=== PATIENT | male | born 1980 | race Caucasian/White ===

== ENCOUNTER 2019-07-21 11:31 | Emergency (ER) | payer OTHER ==
[2019-07-21 11:59] VITALS: BP 145/90; PULSE 95; TEMP 98.1; BMI 26.7
--- NOTE | 2019-07-21 12:52 | PDOC ---
Attending Attestation - Resident Resident Name: Keyonna Bryan - ED Attending Attestation I have performed the following: I have examined & evaluated the patient, The case was reviewed & discussed with the resident, I agree w/resident's findings & plan, Exceptions are as noted - HPI HPI: 07/21/19 12:45 39y M hx of anxiety presents with complaint of facial injury. The patient was working on a 3yy game platformfolding when he steppd on a broken board and fell off. He notes he was able to reach out and grab a slopped bar, but slid down the bar, felloff and struck his face on the ground. he remembers hitting his head on the ground, denies any other injury or pain and is not sure if anything else hit the ground first. He endorses facial pain but denies any headache, diziness, vision chabnges, numbness/tingling/weakness, neck pain, back pain arm pain, hand pain, hip pain, knee pain. pt had gone to urgent care but was referred to the ED for evaluation. exam: GENERAL: The patient is awake, alert, and fully oriented, Nontoxic - in no acute distress. HEAD: Normocephalic, atraumatic. EYES: extraocular movements intact, sclera anicteric, conjunctiva clear. ENT: Normal voice, Moist mucous membranes. Skin avulsion over the bridge of nose, edema and tenderness palpation to the proximal nose/bridge, no signs of septal hematoma. No tenderness along the mastoids, mandible, maxilla. No signs of malocclusion or loose teeth. Negative glover sign. Superficial laceration lateral to the left nare NECK: Normal range of motion, supple LUNGS: Breath sounds equal, clear to auscultation bilaterally. No wheezes, no rhonchi, no rales. HEART: Regular rate and rhythm, normal S1 and S2 without murmur, rub or gallop. ABDOMEN: Soft, nontender, No guarding, no rebound. No CVA tenderness EXTREMITIES: Normal range of motion, no edema. NEUROLOGICAL: No facial assymetry, Normal speech, PSYCH: Normal mood, normal affect. SKIN: Warm, Dry, normal turgor, Back: No midline tenderness to the cervical, thoracic or lumbar spine Musculoskelatal: FROM of b/l shoulders, elbows, wrist. FROM of hips, knees, ankles - No signs of ecchymosis, erythema, or crepitus noted on palpation extremities, chest wall, clavicals, ribs, back. Will obtain CT of the head and C-spine and facial bones. Patient's tetanus is updated from 201507/21/19 15:01 Will apply bacitracin to the skin avulsion over the bridge of the nose, the patient's facial laceration was repaired with Dermabond. Awaiting CT results - Physicial Exam PE: 07/22/19 10:01 see above - Medical Decision Making 07/21/19 15:57 ct noted for nasal fractures no signs of orbital fx no signs of will treat with prophylaxic abx, ENT and nose blowing precautions returnp recautions were dsicussed
--- NOTE | 2019-07-21 13:04 | PDOC ---
History of Present Illness - General Chief Complaint: Nasal Bleeding Stated Complaint: NOSE BLEED Time Seen by Provider: 07/21/19 12:09 History Source: Patient Exam Limitations: No Limitations - History of Present Illness Initial Comments: 39 year old male with PMH bunions, anxiety presented to ED for epistaxis and facial pain s/p fall from 6 foot scaffolding today. Pt reported he mis-stepped, causing himself to fall off a 6 foot scaffolding, he tried to grab the rail, but ultimately fell to the ground. He denied LOC, but reported he is unsure exactly of how he landed. He denied vomiting, chest pain, abdominal pain, shortness of breath, nausea, weakness, numbness, tingling, back pain, upper or lower extremity pain, lightheadedness, visual changes, pain with EOM. Allergies: PCN, all antibiotics except doxycycline + erythromycin ROS General: denied fever, chills, generalized weakness. HEENT: admitted to nasal pain, epistaxis, facial pain. denied sore throat, rhinorrhea, ear pain. Cardiovascular: denied chest pain, palpitations, syncope, diaphoresis. Respiratory: denied shortness of breath, cough, sputum production, hemoptysis. Gastrointestinal: denied abdominal pain, nausea, vomiting, diarrhea, constipation, blood in stool. Genitourinary: denied dysuria, increased urinary frequency, hematuria, urinary incontinence, flank pain. Back: denied back pain. Musculoskeletal: denied joint pain, muscle pain, joint swelling. Neurological: denied headache, dizziness, numbness, tingling, weakness. Integumentary: denied rash, laceration, abrasion. Hematologic/Lymphatic: denied bruising or bleeding. PE Constitutional: Well-nourished, Well-developed, appearing stated age. Airway: intact Breathing: bilateral breath sounds Circulation: 2+ carotid pulse B/L HEENT: head is normocephalic. no scalp hematomas. ecchymoses infraorbital right side. No facial bones tenderness to palpation. No glover sign. EOMI. PERRLA. no septal hematoma bilaterally. no active bleeding, soaked gauze removed from bilateral nares. swelling over bridge of nose with tenderness to palpation. Neck: supple. Full ROM. no midline c-spine tenderness to palpation. No step offs. Cardiovascular: regular heart rhythm. no murmurs. no pericardial friction rub. Chest wall: No tenderness to palpation of anterior chest wall. No deformity to anterior chest wall. no bruising to chest. Respiratory: clear to auscultation bilaterally. no crackles, rhonchi or wheezing. no stridor. no bruising to back. Gastrointestinal: soft, nontender. normal bowel sounds. no rebound, guarding, masses. No ecchymoses. no bruising to abdomen. Back: no midline T-spine or L-spine tenderness to palpation. No step offs. Pelvis: lower extremities equal in length without external rotation. No hip tenderness to palpation. Extremities: peripheral pulses intact. no lower extremity edema. Neurological: CN 2-12 grossly intact. moves all four extremities. Psych: awake, alert, oriented x3. follows commands. answers questions appropriately. Skin: 3 mm laceration to the left nare, no active bleeding, not full thickness. Past History - Past Medical History Allergies/Adverse Reactions: Allergies Allergy/AdvReac Type Severity Reaction Status Date / Time Penicillins Allergy Verified 07/21/19 11:51 Home Medications: Ambulatory Orders Doxycycline Hyclate 100 mg PO BID #14 tablet. 07/21/19 - Immunization History Immunization Up to Date: Yes - Psycho Social/Smoking Cessation Hx Smoking History: Current every day smoker Number of Cigarettes Smoked Daily: 40 Information on smoking cessation initiated: No Hx Alcohol Use: No Drug/Substance Use Hx: No *Physical Exam - Vital Signs Last Vital Signs Temp Pulse Resp BP Pulse Ox 98.1 F 95 H 16 145/90 98 07/21/19 11:51 07/21/19 11:51 07/21/19 11:51 07/21/19 11:51 07/21/19 11:51 Procedures - Laceration/Wound Repair Left Lateral Nose Wound Length: to 2.5 cm Wound Explored: clean, no foreign body present Wound's Depth, Shape: superficial Irrigated w/ Saline: Yes Betadine Prep: No Amount of Anesthetic (ccs): 0 Wound Repaired With: Dermabond ED Treatment Course - RADIOLOGY Radiology Studies Ordered: Category Date Time Status CERVICAL SPINE CT W/O CONTR [CT] Stat CT Scan 07/21/19 12:[address] W/O CONTRAST [CT] Stat CT Scan 07/21/19 12:[address] WITHOUT CONTRAST [CT] Stat CT Scan 07/21/19 12:37 Ordered Medical Decision Making - Medical Decision Making 39 year old male with above PMH presented to ED for facial pain s/p falling down a 6 foot scaffolding today. Initial Vital Signs Temp Pulse Resp BP Pulse Ox 98.1 F 95 H 16 145/90 98 07/21/19 11:51 07/21/19 11:51 07/21/19 11:51 07/21/19 11:51 07/21/19 11:51 Afebrile. No tachycardia. No tachypnea. Hypertensive. No hypoxia on room air. Labs ordered: none Imaging ordered: CT head, CT facial bones, CT cervical spine Medications ordered: none -Pt refused pain medication 07/21/19 15:39 CT head report: Name: [facility] Phys: Keyonna Bryan RESIDENT : 1980 Age: 39 Sex: M [facility] Acct: [id number] Loc: [address] Exam Date: 07/21/19 [place] [address] Unit Number: [id number] EXAM#: TYPE/EXAM: RESULT: CT/HEAD CT WITHOUT CONTRAST HISTORY PROVIDED : Fall TECHNIQUE: Sequential axial images were obtained from the base of the skull to the vertex. There is no evidence of acute intracranial hemorrhage, mass lesions or infarctions. There is no evidence of fracture or acute bony abnormalities. IMPRESSION: No evidence of acute intracranial pathology. Reported By: Jaime Mays MD 07/21/[address] facial bones report: Name: [facility] Phys: Keyonna Bryan RESIDENT : 1980 Age: 39 Sex: M [facility] Acct: [id number] Loc: [address] Exam Date: 07/21/19 [place] [id number] Unit Number: [id number] EXAM#: TYPE/EXAM: RESULT: CT/FACIAL BONES CT W/O CONTRAST History provided: Fall. Sequential axial images were obtained through the facial bones. Coronal and sagittal reconstructed images were also performed. There are slightly displaced fractures through the nasal bones bilaterally. No additional fractures or acute bony abnormalities are identified. There is partial opacification of the right maxillary sinus that could be related to blood. Mild mucosal thickening is seen within the left maxillary sinus. IMPRESSION: Nasal bone fractures as described above. Reported By: Jaime Mays MD 07/21/19 1535 07/21/19 15:44 CT cervical spine report: Name: [facility] Phys: Keyonna Bryan RESIDENT : 1980 Age: 39 Sex: M [facility] Acct : [id number] Loc: [facility] Exam Date: 07/21/19 Status: [place] [address] Unit Number: [id number] EXAM#: TYPE/EXAM: RESULT: [id number] CT/CERVICAL SPINE CT W/O CONTR History provided: Fall. Sequential axial images were obtained through the cervical spine from the base of the skull to the thoracic inlet. Coronal and sagittal reconstructed images were also performed. There is no evidence of fracture, subluxation or acute bony abnormalities. Mild degenerative arthritic changes are noted throughout the spine. There is mild straightening of the normal lordotic curve of the spine suggesting muscular spasm. The spinal canal is patent with no evidence of cord upper breast. IMPRESSION: No evidence of cervical spine fracture or acute pathology. Reported By: Jaime Mays MD 1541 Medications ordered: Doxycycline 100 mg PO once Pt reported resolution of epistaxis. Pt reported pain tolerable without any oral pain medication. Pt discharged. Prescribed Doxycycline 100 mg PO BID x7 days. Pt has allergies to all antibiotics except erythromycin and doxycycline. Pt advised to F/U with PCP promptly. Pt given referral for plastics for nasal fracture repair. Pt advised to take ibuprofen/tylenol for pain. Discharge - Discharge Information Problems reviewed: Yes Clinical Impression/Diagnosis: Epistaxis, Fall from height of greater than 3 feet, Work related injury, Broken nose Condition: Stable Disposition: HOME - Admission No - Additional Discharge Information Prescriptions: Doxycycline Hyclate 100 mg PO BID #14 tablet.dr - Follow up/Referral Referrals: Benjamín De Paz MD [Staff Physician] - Austin David MD [Staff Physician] - Tres Thao [Primary Care Provider] - Andres Villanueva MD [Staff Physician] - - Patient Discharge Instructions Patient Printed Discharge Instructions: DI for Nose Fracture, DI for Laceration Repair With Dermabond, DI for Nosebleed Additional Instructions: Follow up with your primary care doctor within 3 days regarding your Emergency Room visit. Your care is not complete until you follow up. Bring all paperwork given to you today to your appointment. Take Motrin over the counter for pain. Take as advised on label. You can also ADD Tylenol over the counter for pain if needed. Take as advised on label. Tylenol and Motrin are not the same medication and can be used safely together. Hold pressure over the bridge of your nose if it begins to bleed again. Do no insert anything into your nose. Do not scratch the inside of your nose. Do not blow your nose. Return to the Emergency Department for chest pain, shortness of breath, vomiting , increasing pain, abdominal pain, lightheadedness, passing out, numbness, tingling or any other new, worsening or concerning symptoms. Follow up with and ENT doctor within 3 days regarding your Emergency Room visit. Your care is not complete until you follow up. Bring all paperwork given to you today to your appointment. Do not blow your nose, or insert anything inside or play any sports until evaluated by ENT. I have provided you with a referral for a plastic surgeon should you need to see one for repair of your nasal fracture. I have sent a prescription to your Pharmacy for Doxycycline. Pick it up today and take as indicated on label. You had the first dose in the Emergency Department. - Post Discharge Activity Work/Back to School Note: Back to Work
[2019-07-21] MEDS ORDERED: DOXYCYCLINE HYCLATE 100 MG CAPSULE PO ONE (16:10)
== END 2019-07-21 16:18 | disposition home or self-care (01) ==
LOC: JER 11:31 → JERFT 11:31 → JER 16:18
PROC: 0HQ1XZZ Repair Face Skin, External Approach (ICD-10-PCS; principal; 2019-07-21)
DX: S02.2XXA Fracture of nasal bones, initial encounter for closed fracture (principal); S01.81XA Laceration without foreign body of other part of head, initial encounter; R04.0 Epistaxis; W12.XXXA Fall on and from scaffolding, initial encounter; Y93.89 Activity, other specified; Y92.69 Other specified industrial and construction area as the place of occurrence of the external cause; Y99.0 Civilian activity done for income or pay; Z88.0 Allergy status to penicillin
CPT/HCPCS: 70450-TC; 70486-TC; 72125-TC; 99284-25